=== PATIENT | female | born 1955 | race Caucasian/White ===

== ENCOUNTER 2024-06-12 18:49 | Emergency (ER) | payer MEDICARE ==
[2024-06-12] MEDS ORDERED: HYDROcodone/Acetaminophen 5/325 mg Tablet ONE (19:49)
== END 2024-06-12 21:26 | disposition home or self-care (01) ==
LOC: ERS 18:49
DX: S90.121A Contusion of right lesser toe(s) without damage to nail, initial encounter (principal); W01.0XXA Fall on same level from slipping, tripping and stumbling without subsequent striking against object, initial encounter
CPT/HCPCS: 99283